=== PATIENT | female | born 1945 | race Caucasian/White ===

== ENCOUNTER 2017-03-22 16:54 | Emergency (ER) | payer MEDICARE, BC ==
[2017-03-22 17:24] VITALS: BP 139/60; PULSE 82; RESP 16; TEMP 97.6; O2SAT 98
[2017-03-22 17:58] LABS: APPEARANCE,URINE Clear; BILIRUBIN,URINE NEGATIVE (NEGATIVE); COLOR,URINE Light yellow; GLUCOSE, URINE (UA) NEGATIVE (NEGATIVE); KETONES,URINE NEGATIVE (NEGATIVE); LEUKOCYTE ESTERASE ,URINE 1+ (NEGATIVE); NITRATE,URINE NEGATIVE (NEGATIVE); OCCULT BLOOD,URINE 2+ (NEG-TRACE); UROBILINOGEN,URINE 0.2 (0.2-1.0 EU)
[2017-03-22 18:08] LABS: RBC,URINE 0-2 (0-3AV/HPF)
== END 2017-03-22 18:30 | disposition home or self-care (01) | DRG 760 ==
LOC: ED 16:54
DX: N81.10 Cystocele, unspecified (principal); N39.0 Urinary tract infection, site not specified
CPT/HCPCS: 81001; 87077; 87088; 87186; 99283

== ENCOUNTER 2018-05-02 14:22 | Emergency (ER) | payer MEDICARE, BC ==
[2018-05-02] MEDS ORDERED: ASPIRIN 81 MG CHEWABLE CTB PO STA (14:35)
[2018-05-02] MEDS ORDERED: NITROGLYCERIN 0.4 MG TAB SL PRN (14:35)
[2018-05-02] MEDS ORDERED: SODIUM CHLORIDE 0.9% FLUSH 10 ML SOL IV PRN (14:35)
[2018-05-02] MEDS ORDERED: NITROGLYCERIN 0.4 MG TAB SL ONE (14:37)
[2018-05-02] MEDS ORDERED: ASPIRIN 81 MG CHEWABLE CTB ONE (14:37)
[2018-05-02 14:46] LABS: BASOPHILS % (AUTO) 1 % (0-3); EOSINOPHILS % (AUTO) 1 % (0-9); HEMATOCRIT 32 % (35-47); LYMPHOCYTES % (AUTO) 26.4 % (10-50); MEAN CORPUSCULAR HEMOGLOBIN 31.8 pg (27.0-32.0); MEAN CORPUSCULAR HGB CONC 33.9 gm/dl (32.0-36.0); MEAN CORPUSCULAR VOLUME 94 fL (81-99); MONOCYTES % (AUTO) 6.6 % (0-12); NEUTROPHILS % (AUTO) 64.4 % (37-80)
[2018-05-02 14:56] VITALS: TEMP 97.4
[2018-05-02 15:04] LABS: ALBUMIN 3.7 gm/dl (3.4-5.0); ALKALINE PHOSPHATASE 56 IU/L (46-116); ALT 18 IU/L (14-63); AST 16 IU/L (15-37); BILIRUBIN,TOTAL 0.6 mg/dl (0.2-1.0); BLOOD UREA NITROGEN 13 mg/dl (7-18); CALCIUM 8.5 mg/dl (8.5-10.1); CARBON DIOXIDE 24.5 mEq/L (21-32); CHLORIDE 99 mMol/L (98-107); CREATINE KINASE 57 U/L (26-192); CREATININE 0.83 mg/dl (0.60-1.00); GLUCOSE 144 mg/dl (74-106); POTASSIUM 3.8 mMol/L (3.5-5.1); SODIUM 132 mMol/L (136-145); TOTAL PROTEIN 7.2 gm/dl (6.4-8.2); TROP I < 0.017 ng/ml (0.000-0.056)
[2018-05-02 17:06] VITALS: BP 126/58; PULSE 66; RESP 20; O2SAT 98
== END 2018-05-02 16:38 | disposition short-term general hospital (02) | DRG 303 ==
LOC: ED 14:22
DX: I25.110 Atherosclerotic heart disease of native coronary artery with unstable angina pectoris (principal); R06.02 Shortness of breath
CPT/HCPCS: 71045; 80053; 82550; 83880; 84484; 85025; 93005; 99285; 99291; A9270-GY

== ENCOUNTER 2018-07-04 16:50 | Emergency (ER) | payer MEDICARE, BC ==
[2018-07-04] MEDS ORDERED: SODIUM CHLORIDE 0.9% 1000ML 1,000 ML IV ONE (17:34)
[2018-07-04] MEDS ORDERED: SODIUM CHLORIDE 0.9% FLUSH 10 ML SOL IV PRN (17:34)
[2018-07-04 17:53] LABS: BASOPHILS % (AUTO) 0 % (0-3); EOSINOPHILS % (AUTO) 1 % (0-9); HEMATOCRIT 28 % (35-47); LYMPHOCYTES % (AUTO) 10.1 % (10-50); MEAN CORPUSCULAR HEMOGLOBIN 30.5 pg (27.0-32.0); MEAN CORPUSCULAR HGB CONC 32.4 gm/dl (32.0-36.0); MEAN CORPUSCULAR VOLUME 94 fL (81-99); MONOCYTES % (AUTO) 4.5 % (0-12); NEUTROPHILS % (AUTO) 84.2 % (37-80)
[2018-07-04 17:58] LABS: INR 0.92 (0.86-1.12)
[2018-07-04 18:15] LABS: ALBUMIN 3.2 gm/dl (3.4-5.0); BILIRUBIN,TOTAL 0.6 mg/dl (0.2-1.0); CALCIUM 8.6 mg/dl (8.5-10.1); CARBON DIOXIDE 24.6 mEq/L (21-32); CREATININE 1.01 mg/dl (0.60-1.00); POTASSIUM 4.2 mMol/L (3.5-5.1); TOTAL PROTEIN 6.7 gm/dl (6.4-8.2)
[2018-07-04 18:58] VITALS: TEMP 98.5
[2018-07-04] MEDS ORDERED: HYDROMORPHONE HCL 2 MG/ML SOL IV ONE (19:10)
[2018-07-04] MEDS ORDERED: HYDROMORPHONE 1 MG/ML SYRINGE ONE (19:11)
[2018-07-04 20:02] VITALS: BP 144/83; PULSE 81; RESP 18; O2SAT 96
== END 2018-07-04 20:18 | disposition short-term general hospital (02) | DRG 379 ==
LOC: ED 16:50
DX: K62.5 Hemorrhage of anus and rectum (principal)
CPT/HCPCS: 70450; 74177; 80053; 85025; 85610; 96365; 96366; 96374; 99285; 99291; 99292; Q9967; J1170

== ENCOUNTER 2018-10-10 20:22 | Emergency (ER) | payer BC, MEDICARE ==
[2018-10-10] MEDS: SODIUM CHLORIDE 0.9% FLUSH 10 ML SOL IV PRN ×2 (20:43→21:30)
[2018-10-10 20:45] LABS: BASOPHILS % (AUTO) 0 % (0-3); EOSINOPHILS % (AUTO) 0 % (0-9); HEMATOCRIT 33 % (35-47); HEMOGLOBIN 10.5 gm/dl (12.0-15.5); LYMPHOCYTES % (AUTO) 5.3 % (10-50); MEAN CORPUSCULAR HEMOGLOBIN 28.3 pg (27.0-32.0); MEAN CORPUSCULAR HGB CONC 32.1 gm/dl (32.0-36.0); MEAN CORPUSCULAR VOLUME 88 fL (81-99); MONOCYTES % (AUTO) 5.2 % (0-12); NEUTROPHILS % (AUTO) 89.1 % (37-80)
[2018-10-10 20:54] LABS: INR 0.89 (0.86-1.12)
[2018-10-10 21:04] LABS: BLOOD UREA NITROGEN 12 mg/dl (7-18); CARBON DIOXIDE 25.9 mEq/L (21-32); CHLORIDE 93 mMol/L (98-107); CREATININE 1.04 mg/dl (0.60-1.00); GLUCOSE 194 mg/dl (74-106); POTASSIUM 3.1 mMol/L (3.5-5.1); SODIUM 130 mMol/L (136-145); TROP I < 0.017 ng/ml (0.000-0.056)
[2018-10-10 21:08] LABS: APPEARANCE,URINE Clear; BILIRUBIN,URINE NEGATIVE (NEGATIVE); COLOR,URINE Yellow; GLUCOSE, URINE (UA) NEGATIVE (NEGATIVE); KETONES,URINE NEGATIVE (NEGATIVE); LEUKOCYTE ESTERASE ,URINE TRACE (NEGATIVE); NITRATE,URINE NEGATIVE (NEGATIVE); OCCULT BLOOD,URINE 1+ (NEG-TRACE); PH,URINE 5.5; UROBILINOGEN,URINE 0.2 (0.2-1.0 EU)
[2018-10-10 21:18] LABS: CRYSTALS NEGATIVE (0-3 AVE/HPF); EPITHELIAL CELLS 0-1 (SQUAMOUS); RBC,URINE 0-2 (0-3AV/HPF); WBC,URINE 0-1 (0-5AV/HPF)
[2018-10-10 21:19] LABS: BACTERIA RARE (< 1+)
[2018-10-10] MEDS ORDERED: LEVOFLOXACIN 25 MG/ML 500 MG in SODIUM CHLORIDE 0.9% 100 ML 100 ML IV ONE (21:24)
[2018-10-10] MEDS ORDERED: POTASSIUM CHLORIDE 10 MEQ TER PO ONE (21:24)
[2018-10-10] MEDS ORDERED: POTASSIUM CHLORIDE 10 MEQ TER ONE ×2 (21:28→21:30)
[2018-10-10] MEDS ORDERED: LEVOFLOXACIN 25 MG/ML SOL IV ONE (21:28)
[2018-10-10 22:10] VITALS: TEMP 98.4
[2018-10-10] MEDS ORDERED: SODIUM CHLORIDE 0.9% 1000ML 1,000 ML IV ONE (22:30)
[2018-10-10 22:34] VITALS: BP 128/54; PULSE 81; RESP 16; O2SAT 97
== END 2018-10-10 23:11 | disposition home or self-care (01) | DRG 312 ==
LOC: ED 20:22
DX: R55 Syncope and collapse (principal); J18.9 Pneumonia, unspecified organism; D64.9 Anemia, unspecified
CPT/HCPCS: 70450; 71046; 80048; 81001; 82272; 84484; 85025; 85610; 87088; 93005; 96365; 96366; 99284; 99285; J1956; A9270-GY

== ENCOUNTER 2018-11-18 08:23 | Day surgery (SDC) | payer BC ==
[~2018-11-18 08:23] MED LIST: FENTANYL 100MCG/2ML SOL ONE; PROPOFOL 10 MG/ML 200 MG/20 ML EMU IV ONE
[2018-11-18 09:33] VITALS: RESP 14
[2018-11-18 09:56] VITALS: BP 132/68; PULSE 77; TEMP 97.7; O2SAT 100
== END 2018-11-18 10:00 | disposition home or self-care (01) | DRG 812 ==
LOC: SURG 08:23
PROVIDERS: ATTEND Surgery
DX: D50.9 Iron deficiency anemia, unspecified (principal); E11.9 Type 2 diabetes mellitus without complications
CPT/HCPCS: J3010; J2704

== ENCOUNTER 2018-12-09 07:18 | Day surgery (SDC) | payer BC ==
[2018-12-09] MEDS ORDERED: LIDOCAINE HCL 1% MPF 30 SOL ONE (07:58)
[2018-12-09] MEDS ORDERED: PROPOFOL 500 MG/50 ML EMU IV ONE (07:58)
[2018-12-09 09:53] VITALS: BP 127/65; PULSE 64; RESP 20; TEMP 97.3; O2SAT 99
== END 2018-12-09 10:45 | disposition home or self-care (01) | DRG 391 ==
LOC: SURG 07:18
PROVIDERS: ATTEND Surgery
DX: K57.20 Diverticulitis of large intestine with perforation and abscess without bleeding (principal); K55.21 Angiodysplasia of colon with hemorrhage; D50.9 Iron deficiency anemia, unspecified; K63.9 Disease of intestine, unspecified
CPT/HCPCS: J2001; J2704

== ENCOUNTER 2019-05-17 16:27 | Emergency (ER) | payer BC ==
[2019-05-17] MEDS ORDERED: SODIUM CHLORIDE 0.9% FLUSH 10 ML SOL IV PRN (16:40)
[2019-05-17] MEDS ORDERED: MORPHINE SULFATE 10 MG/ML SOL IV PRN (16:40)
[2019-05-17] MEDS ORDERED: ASPIRIN 81 MG CHEWABLE CTB PO STA (16:40)
[2019-05-17] MEDS ORDERED: ASPIRIN 81 MG CHEWABLE CTB ONE (16:41)
[2019-05-17] MEDS ORDERED: NITROGLYCERIN 0.4 MG TAB SL ONE ×2 (16:41→21:03)
[2019-05-17] MEDS: NITROGLYCERIN 0.4 MG TAB SL PRN ×2 (16:43→21:00)
[2019-05-17 16:44] VITALS: TEMP 67.8
[2019-05-17 16:53] LABS: BASOPHILS % (AUTO) 1 % (0-3); EOSINOPHILS % (AUTO) 1 % (0-9); HEMATOCRIT 37 % (35-47); LYMPHOCYTES % (AUTO) 22.3 % (10-50); MEAN CORPUSCULAR HEMOGLOBIN 30.1 pg (27.0-32.0); MEAN CORPUSCULAR HGB CONC 32.3 gm/dl (32.0-36.0); MEAN CORPUSCULAR VOLUME 93 fL (81-99); MONOCYTES % (AUTO) 6.9 % (0-12); NEUTROPHILS % (AUTO) 68.7 % (37-80)
[2019-05-17 17:01] LABS: ALBUMIN 3.7 gm/dl (3.4-5.0); ALKALINE PHOSPHATASE 104 IU/L (46-116); ALT 16 IU/L (14-63); AST 16 IU/L (15-37); BILIRUBIN,TOTAL 0.9 mg/dl (0.2-1.0); BLOOD UREA NITROGEN 8 mg/dl (7-18); CALCIUM 8.6 mg/dl (8.5-10.1); CARBON DIOXIDE 26.5 mEq/L (21-32); CHLORIDE 97 mMol/L (98-107); CREATINE KINASE 68 U/L (26-192); CREATININE 0.84 mg/dl (0.60-1.00); GLUCOSE 134 mg/dl (74-106); TOTAL PROTEIN 7.4 gm/dl (6.4-8.2); TROP I < 0.017 ng/ml (0.000-0.056)
[2019-05-17 21:38] VITALS: BP 142/49; PULSE 56; RESP 15; O2SAT 99
== END 2019-05-17 21:09 | disposition home or self-care (01) | DRG 313 ==
LOC: ED 16:27
DX: R07.9 Chest pain, unspecified (principal); E11.9 Type 2 diabetes mellitus without complications
CPT/HCPCS: 36415; 71045; 80053; 82550; 84484; 85025; 85610; 85730; 93005; 99283; 99284; A9270-GY